=== PATIENT | male | born 1965 | race Caucasian/White ===

== ENCOUNTER → 2016-10-03 | Outpatient (CLI) | payer MEDICARE, BC, OTHER ==
[~2016-10-03] MED LIST: ANAS1TAB PO; BACL10P IT; BACL10TA PO; CHOL50006 PO; CLON2TAB PO; DEXT5TAB2 PO; KLON2TAB PO; LEXA10TA PO; MAGN1TAB14 PO; MIRA50TA PO; MULT1TAB84 PO; MULTTAB22 PO; NATA1INJ IV; PRO-CAP PO; PROG100C PO; TEST200I13 IM; VITACAP7 PO; [UNRECOGNIZED DRUG - CODE] ITR; [UNRECOGNIZED DRUG - OTHER] ITR; [UNRECOGNIZED DRUG - OTHER] PO
[2016-10-03 14:37] LABS: AUTOMATED NEUTROPHIL # 6.4 TH/MM3 (1.8-7.7); BASOPHIL # 0.1 TH/MM3 (0-0.2); BASOPHIL % 0.6 % (0.0-2.0); EOSINOPHIL # 0.2 TH/MM3 (0-0.4); EOSINOPHIL % 2.2 % (0.0-4.0); HEMATOCRIT 50.3 % (39.0-51.0); HEMO FLAGS DIFF FINAL; LYMPH % 24.3 % (9.0-44.0); LYMPHOCYTE # 2.4 TH/MM3 (1.0-4.8); MEAN CELL VOLUME 82.2 FL (80.0-100.0); MEAN CORPUSCULAR HEMOGLOBIN 28.3 PG (27.0-34.0); MEAN CORPUSCULAR HGB CONC 34.5 % (32.0-36.0); NEUT % 63.9 % (16.0-70.0); PLATELET COUNT 197 TH/MM3 (150-450); RED BLOOD COUNT 6.12 MIL/MM3 (4.50-5.90); RED CELL DISTRIBUTION WIDTH 14.6 % (11.6-17.2)
--- NOTE | 2016-10-04 15:25 | EKG ---
Date Performed: 10/03/2016 Time Performed: 13:28:00 PTAGE: 51 years EKG: Sinus rhythm NONSPECIFIC T-WAVE ABNORMALITY BORDERLINE ECG PREVIOUS TRACING 09/01/2016 05.42.07 Compared to previous tracing, the patient is no longer ta chycardic DOCTOR: Emily Perkins Interpretating Date/Time 10/04/2016 15:24:14
== END ==
LOC: CPRE 12:54
PROVIDERS: ATTEND Pain Medicine Interventional Pain Medicine
DX: Z01.810 Encounter for preprocedural cardiovascular examination (principal); Z01.812 Encounter for preprocedural laboratory examination
CPT/HCPCS: 36415; 84132; 85025; 93005

== ENCOUNTER → 2016-10-10 | Day surgery (SDC) | payer MEDICARE, BC ==
[~2016-10-10] VITALS: Ht 185.4 cm; Wt 100.0 kg
[~2016-10-10] MED LIST changes: +BACLOFEN PF INJ 10 MG/20 ML KIT IT ONE; +BUPIVACAINE/EPINEPHRINE 0.5% PF 30 ML VIAL ONE; -CLON2TAB PO; +LACTATED RINGER'S 1000 ML INJ 1,000 ML ONE; +MIDAZOLAM HCL 2 MG/2 ML VIAL ONE; -MULT1TAB84 PO; -NATA1INJ IV; +ONDANSETRON HCL 4 MG/2 ML VIAL IV PUSH ONE; +PROPOFOL 200 MG/20 ML AMP IV ONE; +SODIUM CHLORIDE 0.9% 20 ML VIAL ONE; +SODIUM CHLORIDE 0.9% INJ 100 ML ONE; +SODIUM CHLORIDE 0.9% INJ 50 ML ONE; +VANCOMYCIN 500 MG VIAL ONE; -[UNRECOGNIZED DRUG - OTHER] ITR; +ceFAZolin INJ 1,000 MG VIAL ONE
[2016-10-10 10:43] VITALS: BP 132/85; PULSE 82; RESP 18; TEMP 98; O2SAT 99
[2016-10-10 14:20] VITALS: BP 130/70; PULSE 94; RESP 16; TEMP 98; O2SAT 99
--- NOTE | 2016-10-11 11:22 | MP ---
cc: SINAN DONALDSON M.D. DATE OF SURGERY: 10/10/2016 DATE OF : 1965 PROCEDURE: Replacement of Medtronic Synchromed pump for intrathecal baclofen. PREOPERATIVE DIAGNOSIS: End of battery life of Medtronic Synchromed pump. POSTOPERATIVE DIAGNOSIS: End of battery life of Medtronic Synchromed pump. OPERATION: IV was started in the holding area. The patient was given IV antibiotics. His consent forms were signed the surgical site was marked. The patient was taken to the operating room and placed in the supine position. All pressure points were checked and padded and he was given sedation by Dr. Priya Stewart. His right abdomen was shaved and then prepped with Chloraprep and draped with sterile drapes. Then the skin over the implanted pump in the right upper quadrant was infiltrated with half percent Marcaine containing epinephrine and incision was made down to the existing pump. The pump was freed from the underlying tissue using sharp and blunt dissection. Then a new Medtronic pump was filled with Baclofen on a side table and purged. Then the old pump was disconnected from the intrathecal catheter and the new pump was connected to the intrathecal catheter and secured around the nipple with 2-0 Ethibond suture. Then the new pump as placed in the subcutaneous pocket with the access port facing the umbilicus. Then the old Dacron cuff was sewn together over the new pump using 2-0 Ethibond suture that were interrupted then the incision was closed with 3-0 Monocryl in the subcuticular tissue and 3-0 nylon on the skin. The incisions were covered with sterile adhesive dressings and the patient was taken to the Recovery Room with stable vital signs neurologically intact. WMD DARBY Parada/antonino /1:51 PM /11:14 AM
== END | disposition home or self-care (01) ==
LOC: CSDC 10:01
PROVIDERS: ATTEND Pain Medicine Interventional Pain Medicine
DX: Z45.1 Encounter for adjustment and management of infusion pump (principal); G35 Multiple sclerosis
CPT/HCPCS: 00300; 62362; C1772; J0475; J0690; J1642; J2250; J2405; J3010; J3370; J7120